=== PATIENT | male | born 1955 | race Two or more races ===

== ENCOUNTER 2019-11-26 23:54 | Emergency (ER) | payer MEDICAID ==
[~2019-11-26] VITALS: Ht 177.8 cm; Wt 74.8 kg
[2019-11-26] MEDS ORDERED: EPINEPHrine HCL 1 MG/10 ML SYRG IV ONE (23:58)
[2019-11-27 00:22] LABS: Hematocrit 46.1 % (41.0-53.0); Hemoglobin 14.7 g/dL (13.5-17.5); Mean Corpuscular Hemoglobin 33.2 pg (28.0-32.0); Mean Corpuscular Hgb Conc. 31.9 g/dL (32.0-36.0); Mean Corpuscular Volume 103.8 fL (80.0-100.0); Platelet Count (auto) 186 10^3/uL (140-450); Red Blood Cells 4.44 10^6/uL (4.5-5.90); Red Cell Distribution Width 14.4 % (11.8-14.3); White Blood Cell 6.2 10^3/uL (4.4-10.8)
[2019-11-27 00:23] LABS: Basophils % (manual) 0 (0.0-2.0); Blast Cells 0; Eosinophils % (manual) 0 (0-7); Metamyelocytes % 0; Myelocytes % 0; Promyelocytes % 0
[2019-11-27 00:35] LABS: Potassium 3.8 mmol/L (3.5-5.1)
[2019-11-27 00:38] LABS: BUN/Creatinine Ratio 12.6; Magnesium 4.7 mg/dL (1.6-2.6)
[2019-11-27 00:42] LABS: Bilirubin, Total 0.5 mg/dL (0.2-1.0); Total Protein 6.9 g/dL (6.4-8.2)
[2019-11-27 00:47] LABS: INR 1.06 (0.9-1.15); Partial Thromboplastin Time 34.5 sec (23.64-32.05)
[2019-11-27 00:52] LABS: Band Neutrophils % (manual) 4; Lymphocytes % (manual) 85 (10.0-50.0); Monocytes % (manual) 5 (0-12); Reactive Lymphocytes 1
== END 2019-11-27 01:10 | disposition home or self-care (01) ==
LOC: ER 23:57 → EDBD 23:57 → ER 11-27 01:10
DX: I46.9 Cardiac arrest, cause unspecified (principal); Z95.1 Presence of aortocoronary bypass graft
CPT/HCPCS: 36415; 80053; 83735; 84484; 85007; 85027; 85379; 85610; 85730; 92950; 99291; J0171